=== PATIENT | male | born 1995 | race Caucasian/White ===

== ENCOUNTER 2019-06-14 23:16 | Emergency (ER) | payer BC, OTHER, SELFPAY ==
[2019-06-14 23:18] VITALS: BP 151/87; PULSE 91; RESP 12; TEMP 36.6; O2SAT 100; BMI 36.1
--- NOTE | 2019-06-14 23:38 | ED.VISSUMM ---
- ER Visit Summary Date of Service: 06/14/19 Chief Complaint: Urine discoloration History of Present Illness: The patient is a 23 M who presents with urine discoloration that began today. Patient states that couple hours ago he noted his urine to be orange and red. Patient states he urinated again later and it was starting to improve but was still discolored. Patient denies any pain. Patient denies any dysuria. Patient denies any flank pain. Patient denies any nausea or vomiting. Patient denies any urethral discharge or drainage. Patient denies any other symptoms. Physical Examination: Vital signs are stable. Patient is afebrile. Patient is in no acute distress. Oral mucosa is pink and moist. Neck is supple. Trachea is midline. There is no JVD noted. Heart was regular rate and rhythm. Lungs are clear and equal bilaterally. Abdomen is soft. Bowel sounds are normal. There is no tenderness. There is no rebound or guarding noted. Skin is warm dry. Cranial nerves II through XII are intact. There are no focal motor or sensory deficits noted. Extremities are intact. There is no calf tenderness or edema. Test Results: Urinalysis was ordered. Blood was 250 and there were greater than 100 red blood cells. Because of this a CBC, comprehensive metabolic profile and CT scan of the abdomen and pelvis were obtained. Labs are within normal limits. CT scan of the abdomen and pelvis shows a 5 mm stone within the left kidney but no obstruction or hydronephrosis. This was interpreted by the radiologist and reviewed by myself. Emergency Department Course and Treatment: Patient was advised of the findings. Patient was instructed to drink plenty of fluids. Patient was instructed to follow-up with his primary care physician in 5 to 7 days. Patient was instructed return if worse in any way. Patient understood and was agreeable with the plan. All questions were answered. Disposition: Discharge home Impression: Hematuria This note was generated with [employer] dictation software. It may contain incorrect words, spelling, and punctuation that were not noted in review of the chart prior to signing ED Disposition - Plan for ED Patient: Disposition: Home or Assisted Living Diagnosis: Hematuria Instructions: Hematuria Referrals: NOT,DEFINED [NON-STAFF] - 5-7 Days
[2019-06-14 23:58] LABS: Bacteria 0 SEEN /hpf (None Seen); Mucous, Urine 0 SEEN /hpf (<or=2+); Squamous Epithelial Cells - UA 0 SEEN /hpf (0-5); White Blood Cells 0 SEEN /hpf (0-5)
[2019-06-15] LABS: Color, Urine Amber (Yellow); Glucose, Dipstick Normal (Normal); Ketone-Dipstick 5 mg/dl (Negative); Leukocyte Esterase-Dipstick 25 /ul (Negative); Nitrite-Dipstick Negative (Negative); Occult Blood-Urine 250 /ul (Negative); Protein-Dipstick 30 mg/dl (Negative); Urine Bilirubin Dipstick Negative (Negative); Urine Clarity Cloudy (Clear); Urine Urobilinogen Normal (Normal)
[2019-06-15 00:15] LABS: Red Blood Cells-Urine > 100 SEEN /hpf (0-5)
--- NOTE | 2019-06-15 01:04 | CT_ITS ---
STUDY: CT ABDOMEN AND PELVIS WITHOUT CONTRAST REASON FOR EXAM: Male, 23 years old. ORANGE URINE TODAY, HEMATURIA, HX HTN RADIATION DOSAGE (If Supplied By Facility): CTDIvol = ( 15.83 ) mGy, DLP = ( 866.07 ) mGycm TECHNIQUE: Transaxial images were obtained from the dome of the diaphragm to the symphysis pubis without oral contrast, and without intravenous contrast. Sagittal and coronal images were reconstructed. Individualized dose optimization techniques were used for this CT. COMPARISON: None. FINDINGS: The visualized lung bases are unremarkable. The visualized portions of the heart are within normal limits. Normal liver. Normal gallbladder and extrahepatic biliary system. Normal spleen. Normal pancreas. Normal bilateral adrenal glands. Normal right kidney. There is 5 mm stone in the left kidney without hydronephrosis. Normal visualized stomach. Normal small intestine. Normal colon. The appendix is visualized and appears normal. Normal abdominal aorta. Normal inferior vena cava. Normal retroperitoneum. Normal urinary bladder. Normal abdominal wall. Normal osseous structures. CT/Abdomen/Pelvis without Cont IMPRESSION: There is 5 mm stone in the left kidney without hydronephrosis. Electronically Signed: Cruz Childers, at 2:11 EST Tel , Service support ,
[2019-06-15 01:22] LABS: Absolute Lymphocyte Count 2.45 X10^3/uL (0.83-4.51); Absolute Neutrophil Count 3.5 X10^3/uL (2.0-7.7); Basophil# 0.03 X10^3/uL; Basophil% 0.4 % (0-1); Eosinophil# 0.11 X10^3/uL; Eosinophils% 1.6 % (0-5); Hematocrit 44.2 % (40-54); Hemoglobin 15.9 g/dL (13.0-16.5); Lymphocyte # 2.45 X10^3/ul (4.0); Lymphocyte % 36.5 % (19-41); Mean Corpuscular Hgb 30.2 pg (27.0-32.0); Mean Corpuscular Volume 83.9 fL (80-94); Mean Platelet Vol. 8.8 fl (6.2-12.0); Monocyte# 0.58 X10^3/uL; Monocyte% 8.6 % (0-10); NRBC Flagged by Analyzer 0 % (0-5); Neutrophil # 3.49 X10^3/uL (2.7-7.7); Platelet Count 307 K/mm3 (150-450); RBC Distribution Width CV 12.1 % (11.6-14.6); RBC Distribution Width SD 35.8 fl (35.1-43.9); Red Blood Count 5.27 M/mm3 (4.6-6.2); White Blood Count 6.7 K/mm3 (4.4-11.0)
[2019-06-15 01:39] LABS: ALB/GLOB Ratio 1.2 RATIO (0.9-2.4); AST(SGOT) 25 U/L (15-37); Alanine Aminotransfer ALT/SGPT 68 U/L (16-61); Albumin, Serum 4.4 g/dL (3.2-5.0); Alkaline Phosphatase 51 U/L (45-117); Anion Gap 5 (5-15); BUN 15 mg/dL (7-18); BUN/Creat Ratio 15.2 RATIO (10-20); Calcium,Total 9.5 mg/dL (8.5-10.1); Chloride 108 mmol/L (98-107); Creatinine, Serum 0.99 mg/dL (0.70-1.30); EST Glomerular Filtration Rate 98 mL/min (>60); Est Glom Filt Rate - Afr Amer 118 mL/min (>60); Estimated Creatinine Clearance 102.93 ml/min; Globulin 3.6 g/dL (2.2-4.2); Glucose 96 mg/dL (74-106); Potassium 3.9 mmol/L (3.5-5.1); Sodium Level 142 mmol/L (136-145)
[2019-06-15 02:44] VITALS: BP 139/77; PULSE 85; RESP 18; O2SAT 99
== END 2019-06-15 02:48 | disposition home or self-care (01) ==
PROVIDERS: Emergency Provider Emergency Medicine
DX: N20.0 Calculus of kidney (principal)
CPT/HCPCS: 74176; 80053; 81001; 85025; 99283; A4216

== ENCOUNTER 2019-07-10 10:57 | Day surgery (SDC) | payer BC, OTHER, SELFPAY ==
[2019-07-10] VITALS (7 sets, daily range): BP systolic 112–141; BP diastolic 73–92; PULSE 66–94; RESP 15–16; TEMP 36.3–37.1; O2SAT 94–100; BMI 34.5
--- NOTE | 2019-07-10 11:02 | RAD_ITS ---
STUDY: X-RAY - ABDOMEN/PELVIS REASON FOR EXAM: Male, 23 years old. pre op for ESWL, left kidney stone TECHNIQUE: 1 view COMPARISON: Prior abdomen and pelvic CT exam of June 15, 2019 FINDINGS: Normal visualized lung bases. There is an unremarkable bowel gas pattern. There is no demonstrated free abdominal air. Negative for right renal or ureteral calcifications. On the left, there is a calcific density with irregular margins measuring about 4 mm that appears to be along the medial edge of the left renal silhouette 3.8 cm above the inferior surface of the lower pole. Normal visualized osseous structures. RAD/Abdomen Single View IMPRESSION: 4 mm irregular calcification which appears to be along the medial edge of the kidney 3.8 cm above the inferior surface of the lower pole on the prior CT exam of June 15, 2019 a stone was identified just above the midpoint of the left kidney. Assuming this is the same calcification is now on a different location. Using the prior CT exam as a map, the stone would appear to be at or near the ureteropelvic junction. No additional calcifications. Unremarkable abdominal bowel gas pattern. Electronically Signed: Veronica Philippe MD at 17:15 EDT , Service support ,
[2019-07-10] MEDS: Lactated Ringers 1,000 ML 100 ML IV ×2 (11:45→16:06)
[2019-07-10] MEDS: Cefazolin 2 GM in 0.9% Normal Saline 100 ML IV (13:44)
--- NOTE | 2019-07-10 14:23 | PCM.DC.URO ---
Discharge Diet: Light diet - advance as tolerated Discharge Activity: Return to Normal Activity Call your doctor if your incision/area has: Sudden Increased Bleeding Call your doctor if you observe: Fever of 101 or Higher Instructions: Shock Wave Lithotripsy Allergies/Adverse Reactions: Allergies nut - unspecified Allergy (Verified 07/10/19 11:26) Anaphylaxis Penicillins Adverse Reaction (Verified 07/10/19 11:26) Unknown SEAFOOD Adverse Reaction (Uncoded 07/10/19 11:26) Upset Stomach Medications to take at Discharge Hydrocodone/Acetaminophen [[place] 5-325 Tablet] 1 each PO Q4H PRN PRN #10 tablet 07/10/19 The following prescriptions were given: Hydrocodone/Acetaminophen [[place] 5-325 Tablet] 1 each PO Q4H PRN PRN #10 tablet PRN Reason: Pain Score 1-10/10 Transmission Status: Sent to [facility] Orders to be completed after discharge: Abdomen Single View [RAD] Time Frame: 07/10/19, Facility: [facility], Location: [facility] Primary Care Physician: Ilene SHINE [Other] Test Results: Test results from this visit will be discussed in further detail at your follow-up appointment, if applicable. Please Follow Up With: Nathaniel Lenz MD When: in 2 weeks, please call to make an appointment.
--- NOTE | 2019-07-10 14:23 | PCM.OPRPT ---
Report of Operation Date of Procedure: 07/10/19 Pre-Operative Diagnosis: Left renal calculi Post-Operative Diagnosis: Same Surgery/Procedure Performed:: Left extracorporeal shockwave lithotripsy Description of Surgical Findings:: 23-year-old male has been having intermittent pain in the left side CAT scan was done demonstrated a stone is moving in the left kidney after consultation with the patient we talked about options of management including observation ureteroscopy and laser and shockwave lithotripsy he elected to proceed with shockwave lithotripsy and we plan to treat the stone today with shockwave and we do not plan to place a stent. Patient was taken back to the operating room after smooth induction of anesthesia he was placed supine on the table we then positioned the patient on the lithotripter table we used the fluoroscope and moved around to triangulate to the stone we could see the stone clearly on x-ray and then we delivered shockwaves to the stone at a rate of 90/min and a total of 2000 shockwaves were delivered to a 5 mm fragment in the left kidney appear to be of moved into a lower location stone broke up very well after treatment. At the end of the treatment cycle we were satisfied with the with the fragmentation of the stone no stent was placed patient's anesthetic is currently being reversed plan to see him back with an x-ray in a few weeks. Type of Anesthesia:: General Drains: none - Admit VTE Documentation VTE Present on Admission: No VTE Mechan Device Prophylaxis: SCD's
[2019-07-10] MEDS: Ketorolac 15 MG/ML Vial IV (14:49)
[2019-07-10] MEDS: HYDROcodone Bitartrate/Apap 5/325 Tablet PO (15:48)
== END 2019-07-10 17:26 | disposition home or self-care (01) ==
LOC: SDC 10:57 → AC 10:59
PROVIDERS: Referring Provider Urology; Visit Provider Urology
PROC: (CPT 50590; principal; 2019-07-10 13:10)
DX: N20.0 Calculus of kidney (principal); R31.0 Gross hematuria
CPT/HCPCS: 00873; 50590; 74018; J7120; J2405

== ENCOUNTER → 2021-04-06 10:33 | Outpatient (CLI) | payer BC, OTHER, SELFPAY | PROVIDERS: Visit Provider Family Medicine | DX: Z23 Encounter for immunization (principal) ==

== ENCOUNTER 2022-05-29 03:30 | Emergency (ER) | payer BC, SELFPAY ==
[2022-05-29 03:30] VITALS: BP 163/101; PULSE 62; RESP 18; TEMP 36.4; O2SAT 96; BMI 36.0
--- NOTE | 2022-05-29 03:57 | EKG12_ITS ---
Test Reason : ABD PAIN Blood Pressure : / mmHG Vent. Rate : 066 BPM Atrial Rate : 066 BPM P-R Int : 160 ms QRS Dur : 096 ms QT Int : 438 ms P-R-T Axes : 009 057 037 degrees QTc Int : 459 ms Normal sinus rhythm with sinus arrhythmia Normal ECG Confirmed by UNIQUE HINDS, FLORENTIN ([id number]), editor & co founder MATHEW VALDEZ ([id number]) on 05/31/2022 10:12:10 AM Referred By: GEMA Confirmed By:FLORENTIN CALHOUN MD
--- NOTE | 2022-05-29 03:58 | CT_ITS ---
INDICATION: Pain EXAMINATION: CT ABDOMEN AND PELVIS WITHOUT CONTRAST - CT Abdomen And Pelvis W/O Contrast Injection TECHNIQUE: Helically acquired images were obtained of the abdomen and pelvis without oral or IV contrast. A radiation dose optimization technique was used for this scan. IV Contrast dosage and agent: None. Oral contrast: None. COMPARISON: None. FINDINGS: LOWER CHEST: Lung bases are clear. No cardiomegaly or pericardial effusion. LIVER: Homogeneous. No focal mass. GALLBLADDER AND BILIARY TREE: No calcified gallstones. No gallbladder distension or wall edema. No intra- or extrahepatic biliary ductal dilation. PANCREAS: No focal cystic or solid mass. SPLEEN: Normal size without focal cystic or solid mass. ADRENAL GLANDS: No nodules. KIDNEYS AND URETERS: Normal renal size and position. No hydronephrosis. PERITONEUM: No ascites or free air. No other fluid collection. BOWEL: No evidence of acute appendicitis. No stomach or bowel distension. No focal inflammatory change. LYMPH NODES: No enlarged mesenteric or retroperitoneal lymph nodes. VESSELS: Aorta is non-dilated. URINARY BLADDER: Unremarkable. REPRODUCTIVE ORGANS: No pelvic masses. ABDOMINAL WALL: No discrete abdominal or pelvic wall hernia. BONES: No lytic or blastic abnormality. CT/Abdomen/Pelvis without Cont IMPRESSION: Negative CT abdomen and pelvis without oral or IV contrast. Electronically Signed: Cruz Childers MD at 4:33 EST ,
--- NOTE | 2022-05-29 04:04 | EDS_ITS ---
HPI HPI - GI History of Present Illness Chief Complaint: Abd Pain Informant: patient Narrative Narrative: Patient woke up at about 3 AM with epigastric pain. He states it does radiate a little bit toward his back. He does not really think he is nauseated with it. No lightheadedness or presyncope. He denies any chest pain or migration of the pain into his chest or shortness of breath or trouble with breathing. He urinated when he woke up and he thinks it look normal. No change in bowel habits. He has had kidney stones before and had lithotripsy once. This pain may be similar but he does not think it was in the same spot. He does not drink alcohol. He has never had liver problems or pancreatitis. He has not been having GERD or reflux symptoms recently. He felt fine when he went to bed. He has not vomited with this. He has not been having fevers. [facility] Medical History Kidney calculi Home Medications dicyclomine 20 mg tablet 20 mg PO TID PRN cramps #14 tabs 05/29/22 [Rx Last Taken Unknown] omeprazole 20 mg capsule,delayed release 20 mg PO DAILY 6 weeks #42 caps 05/29/22 [Rx Last Taken Unknown] Allergy/AdvReac Type Severity Reaction Status Date / Time nut - unspecified Allergy Anaphylaxis Verified 05/29/22 03:34 fish derived AdvReac Upset Verified 05/29/22 03:34 [seafood - derived] Stomach Penicillins AdvReac Unknown Verified 05/29/22 03:34 shellfish derived AdvReac Upset Verified 05/29/22 03:34 [seafood - shellfish] Stomach Social History Smoking Status: Never smoker ROS ROS ED Constitutional Constitutional ED: Denies chills, fever(s), subjective or sweats ENT ENT ED: Denies rhinorrhea or sore throat Cardiovascular Cardiovascular: Denies chest pain, palpitations or racing heartbeat Respiratory/Chest Respiratory/Chest: Denies cough, dyspnea or sputum Gastrointestinal Gastrointestinal: Reports abdominal pain and nausea; Denies constipation, diarrhea, melena or vomiting Genitourinary Genitourinary ED: Denies dysuria, hematuria or urinary frequency Musculoskeletal Musculoskeletal: Reports back pain; Denies neck pain Integumentary Denies rash Neurologic Neurologic: Denies paresthesias or weakness Endocrine Endocrinology: Denies polydipsia or polyuria Hematologic/Lymphatic Hematologic/Lymphatic: Denies easy bleeding, easy bruising or lymphadenopathy Allergic/Immunologic Allergic/Immunologic ED: Denies urticaria EXAM Physical Exam Narrative Exam Narrative: Patient is awake and alert. He gives consistent story. He does look uncomfortable on exam. No pallor. HEENT shows mildly dry mucous membranes. Eyes show no jaundice. Neck shows no pain with motion or JVD. No stridor. Lungs are clear bilaterally. He can take good deep breaths without pain. No asymmetry of breasts. Heart is regular with a rate about 65. No murmur gallop or rub. His peripheral pulses x4 are normal. Abdomen is soft nondistended. Bowel sounds sound normal. He does have some epigastric tenderness. No real right or left upper quadrant tenderness and no lower abdominal tenderness. : He does have some CVA tenderness more on the right than the left. But no skin changes. No suprapubic tenderness Extremities show normal pulses color. No tenderness or swelling. No mottling. Skin shows no rash or pallor. No jaundice. Const Vital Signs: 05/29/22 03:30 Temperature 97.5 F L Temperature Source Temporal Pulse Rate 62 Respiratory Rate 18 Blood Pressure 163/101 H Blood Pressure Mean 121 Pulse Ox 96 Oxygen Delivery Method Room Air MDM MDM MDM Narrative Medical decision making narrative: My independent interpretation of the patient's CT of the abdomen without contrast shows no sign of acute process. I see no renal stones. I see no free air perforation. No inflammatory changes. Final reading by radiology shows negative CT abdomen pelvis without oral or IV contrast. I do not think we need CTA. This patient does not have chest pain or dyspnea. Its not tearing or ripping or severe. He has normal pulses. His symptoms are now better. Patient CBC shows mild elevation hemoglobin but normal white count and platelets. Electrolytes are normal. Glucose was minimally up at 119. Total bilirubin was minimally high at 1.2 but this is the same as the past. Remainder of liver function test are normal. Lipase is negative. Urine shows no acute process. Patient is feeling better now. His abdomen is not as tender. He states it still sore in the upper abdomen but overall much better. I explained that with the epigastric pain this is most likely gastric in origin. He did have some radiation to the back but by far most was epigastric. Most likely this is gastritis or ulcer type disease. I will get him on a protein pump inhibitor. We discussed reasons to return which would be further pain, recurrent vomiting, blood in stool or vomitus, fevers, lightheadedness or other concerns. Lab Data Attestation: I reviewed the patient's lab results. Labs: Laboratory Results - last 24 hr 05/29/22 05/29/22 05/29/22 04:03 04:03 04:15 WBC 9.9 RBC 5.55 Hgb 16.6 H Hct 46.6 MCV 84.0 MCH 29.9 MCHC 35.6 RDW Std Deviation 35.7 RDW Coeff of [place] 11.9 Plt Count 276 MPV 9.2 Immature Gran % (Auto) 0.400 Neut % (Auto) 40.4 L Lymph % (Auto) 44.[address] [place] % (Auto) 10.1 H Eos % (Auto) 3.5 Baso % (Auto) 0.7 Absolute Neuts (auto) 4.0 Absolute Lymphs (auto) 4.45 Nucleated RBC % 0 Sodium 142 Potassium 3.5 Chloride 106 Carbon Dioxide 26.0 Anion Gap 10 BUN 16 Creatinine 0.98 Estim Creat Clear Calc 101.27 Est GFR (MDRD) Af Amer 116 Est GFR (MDRD) Non-Af 96 BUN/Creatinine Ratio 16.3 Glucose 119 H Calcium 9.5 Total Bilirubin 1.20 H AST 29 ALT 59 Alkaline Phosphatase 60 Total Protein 8.3 H Albumin 4.3 Globulin 4.0 Albumin/Globulin Ratio 1.1 Lipase 145 Urine Color Yellow Urine Clarity Clear Urine pH 6.0 Ur Specific [place] 1.030 Urine Protein 30 H Urine Glucose (UA) Normal Urine Ketones 5 H Urine Occult Blood 10 H Urine Nitrite Negative Urine Bilirubin 1 H Urine Urobilinogen 1 H Ur Leukocyte Esterase 25 H Urine RBC 0 SEEN Urine WBC 0-5 SEEN Ur Squamous Epith Cells 0 SEEN Urine Bacteria 1+ Urine Mucus 1+ Radiography Diagnostic Testing: Clinical Impression(s) from Imaging Studies Abdomen/Pelvis CT 05/29/22 03:58 IMPRESSION: Negative CT abdomen and pelvis without oral or IV contrast. Electronically Signed: Cruz Childers MD at 4:33 EST , EKG Initial EKG: Comments: My independent interpretation of the EKG done for upper abdominal pain shows sinus rhythm with some sinus arrhythmia. Overall rate of 66. No ventricular ectopy. There is a wavy baseline but no sign of acute ST elevation or depression. WI interval, QRS duration and QTc are normal. Discharge Plan Triage Chief Complaint: Abd Pain ED Provider: Roland Briones Dx/Rx/DC Orders Clinical Impression: Acute epigastric pain Instructions: ED Gastritis Ulcer No Abx, ED Abdominal Pain Unkn Cause Male... Prescriptions: New omeprazole 20 mg capsule,delayed release(DR/EC) 20 mg PO DAILY 42 Days Qty: 42 0RF dicyclomine 20 mg tablet 20 mg PO TID PRN (Reason: cramps) Qty: 14 0RF Primary Care Provider: Care Physician,No Primary Referrals: Umer Reich MD [Med Staff - Mortgage Loan Originator] - 3-5 Days NOT,DEFINED [Non-Staff] - Disposition Disposition: Home, Self Care
[2022-05-29 04:06] LABS: Absolute Lymphocyte Count 4.45 X10^3/uL (0.83-4.51); Basophil# 0.07 X10^3/uL; Basophil% 0.7 % (0-1); Eosinophil# 0.35 X10^3/uL; Eosinophils% 3.5 % (0-5); Hematocrit 46.6 % (40-54); Hemoglobin 16.6 g/dL (13.0-16.5); Lymphocyte # 4.45 X10^3/ul (0.83-4.51); Lymphocyte % 44.9 % (19-41); Mean Corp Hgb Conc 35.6 g/dL (32-36); Mean Corpuscular Hgb 29.9 pg (27.0-32.0); Mean Platelet Vol. 9.2 fl (6.2-12.0); Monocyte% 10.1 % (0-10); NRBC Flagged by Analyzer 0 % (0-5); Neutrophil % 40.4 % (47-70); Platelet Count 276 K/mm3 (150-450); RBC Distribution Width CV 11.9 % (11.6-14.6); RBC Distribution Width SD 35.7 fl (35.1-43.9); Red Blood Count 5.55 M/mm3 (4.6-6.2); White Blood Count 9.9 K/mm3 (4.4-11.0)
[2022-05-29] MEDS: 0.9% Normal Saline 1,000 ML 1000 ML IV (04:11)
[2022-05-29] MEDS: Ondansetron 4 MG/2 ML Vial IV (04:12)
[2022-05-29] MEDS: Morphine 4 MG/ML Syringe IV (04:13)
[2022-05-29 04:22] LABS: ALB/GLOB Ratio 1.1 RATIO (0.9-2.4); AST(SGOT) 29 U/L (15-37); Alanine Aminotransfer ALT/SGPT 59 U/L (16-61); Albumin, Serum 4.3 g/dL (3.2-5.0); Alkaline Phosphatase 60 U/L (45-117); Anion Gap 10 (5-15); BUN 16 mg/dL (7-18); BUN/Creat Ratio 16.3 RATIO (10-20); Calcium,Total 9.5 mg/dL (8.5-10.1); Chloride 106 mmol/L (98-107); Creatinine, Serum 0.98 mg/dL (0.70-1.30); EST Glomerular Filtration Rate 96 mL/min (>60); Est Glom Filt Rate - Afr Amer 116 mL/min (>60); Estimated Creatinine Clearance 101.27 ml/min; Glucose 119 mg/dL (74-106); Lipase 145 U/L (73-393); Potassium 3.5 mmol/L (3.5-5.1); Protein, Total 8.3 g/dL (6.4-8.2); Sodium Level 142 mmol/L (136-145)
[2022-05-29 04:22] LABS: Red Blood Cells-Urine 0 SEEN /hpf (0-5); Squamous Epithelial Cells - UA 0 SEEN /hpf (0-5)
[2022-05-29 04:25] LABS: Color, Urine Yellow (Yellow); Glucose, Dipstick Normal (Normal); Ketone-Dipstick 5 mg/dl (Negative); Leukocyte Esterase-Dipstick 25 /ul (Negative); Nitrite-Dipstick Negative (Negative); Occult Blood-Urine 10 /ul (Negative); Protein-Dipstick 30 mg/dl (Negative); Urine Bilirubin Dipstick 1 mg/dL (Negative); Urine Clarity Clear (Clear); Urine Urobilinogen 1 mg/dl (Normal)
[2022-05-29 04:29] LABS: Bacteria 1+ /hpf (None Seen); Mucous, Urine 1+ /hpf (<or=2+); White Blood Cells 0-5 SEEN /hpf (0-5)
[2022-05-29 05:45] VITALS: BP 154/75; PULSE 79; RESP 18; O2SAT 100
== END 2022-05-29 05:46 | disposition home or self-care (01) ==
PROVIDERS: Emergency Provider Emergency Medicine; Visit Provider Emergency Medicine
DX: R10.13 Epigastric pain (principal); Z87.442 Personal history of urinary calculi
CPT/HCPCS: 74176; 80053; 81001; 83690; 85025; 93005; 96361; 96365; 96375; 99282; J7030; A4216; J2405; J3490

== ENCOUNTER → 2022-07-16 | Outpatient (CLI) | payer BC, SELFPAY ==
[2022-07-16 10:03] LABS: Absolute Lymphocyte Count 1.93 X10^3/uL (0.83-4.51); Absolute Neutrophil Count 2.9 X10^3/uL (2.0-7.7); Basophil# 0.05 X10^3/uL; Basophil% 0.9 % (0-1); Eosinophil# 0.17 X10^3/uL; Eosinophils% 3.1 % (0-5); Hematocrit 47.2 % (40-54); Hemoglobin 16.5 g/dL (13.0-16.5); Lymphocyte # 1.93 X10^3/ul (0.83-4.51); Lymphocyte % 34.7 % (19-41); Mean Corpuscular Hgb 30.2 pg (27.0-32.0); Mean Corpuscular Volume 86.4 fL (80-94); Mean Platelet Vol. 9.5 fl (6.2-12.0); Monocyte# 0.46 X10^3/uL; Monocyte% 8.3 % (0-10); NRBC Flagged by Analyzer 0 % (0-5); Neutrophil # 2.94 X10^3/uL (2.7-7.7); Neutrophil % 52.8 % (47-70); Platelet Count 225 K/mm3 (150-450); RBC Distribution Width SD 37.6 fl (35.1-43.9); Red Blood Count 5.46 M/mm3 (4.6-6.2); White Blood Count 5.6 K/mm3 (4.4-11.0)
[2022-07-16 10:25] LABS: ALB/GLOB Ratio 1.1 RATIO (0.9-2.4); AST(SGOT) 23 U/L (15-37); Alanine Aminotransfer ALT/SGPT 53 U/L (16-61); Albumin, Serum 4.2 g/dL (3.2-5.0); Alkaline Phosphatase 49 U/L (45-117); Anion Gap 7 (5-15); BUN 16 mg/dL (7-18); BUN/Creat Ratio 16.2 RATIO (10-20); Chloride 108 mmol/L (98-107); Cholesterol 198 mg/dL (200); Creatinine, Serum 0.99 mg/dL (0.70-1.30); EST Glomerular Filtration Rate 95 mL/min (>60); Est Glom Filt Rate - Afr Amer 115 mL/min (>60); Globulin 3.7 g/dL (2.2-4.2); Glucose 97 mg/dL (74-106); High Density Lipoprotein 33 mg/dL; Potassium 4.1 mmol/L (3.5-5.1); Protein, Total 7.9 g/dL (6.4-8.2); Sodium Level 140 mmol/L (136-145); T4 Free Direct 0.96 ng/dL (0.76-1.46); Thyroid Stim Hormone (TSH) 1.32 uIU/mL (0.358-3.74); Triglycerides 228 mg/dL; Very Low Density Lipoprotein 46 mg/dL (5-40)
[2022-07-16 10:28] LABS: Vitamin B12 312 pg/mL (211-911); Vitamin D,25 Hydroxy 10.1 ng/mL
[2022-07-19 09:08] LABS: Beef <0.10 kU/L (Class 0); Corn <0.10 kU/L (Class 0); Egg, Whole <0.10 kU/L (Class 0); Milk (Cow) <0.10 kU/L (Class 0); Peanut <0.10 kU/L (Class 0); Pork <0.10 kU/L (Class 0); Soybean <0.10 kU/L (Class 0); Wheat <0.10 kU/L (Class 0)
[2022-07-19 13:05] LABS: Chocolate <0.10 kU/L (Class 0)
== END | disposition home or self-care (01) ==
LOC: MFPLAB 08:24
PROVIDERS: Visit Provider Family Medicine
DX: Z91.018 Allergy to other foods (principal); E66.9 Obesity, unspecified; R53.83 Other fatigue
CPT/HCPCS: 36415; 80053; 80061; 82306; 82607; 84439; 84443; 85025; 86003; 86005

== ENCOUNTER → 2022-11-08 | Outpatient (CLI) | payer BC, SELFPAY ==
[2022-11-08 12:46] LABS: Vitamin D,25 Hydroxy 56.8 ng/mL
== END | disposition home or self-care (01) ==
LOC: MFPLAB 09:49
PROVIDERS: PCP Family Medicine; Visit Provider Family Medicine
DX: E55.9 Vitamin D deficiency, unspecified (principal)
CPT/HCPCS: 36415; 82306

== ENCOUNTER → 2023-05-02 | Outpatient (CLI) | payer BC, SELFPAY ==
[2023-05-02 11:08] LABS: ALB/GLOB Ratio 1.1 RATIO (0.9-2.4); AST(SGOT) 33 U/L (15-37); Alanine Aminotransfer ALT/SGPT 70 U/L (16-61); Albumin, Serum 4.1 g/dL (3.2-5.0); Alkaline Phosphatase 44 U/L (45-117); Anion Gap 5 (5-15); BUN 21 mg/dL (7-18); Calcium,Total 8.7 mg/dL (8.5-10.1); Chloride 107 mmol/L (98-107); EST Glomerular Filtration Rate 93 mL/min (>60); Est Glom Filt Rate - Afr Amer 113 mL/min (>60); Globulin 3.7 g/dL (2.2-4.2); Glucose 99 mg/dL (74-106); Potassium 4.4 mmol/L (3.5-5.1); Protein, Total 7.8 g/dL (6.4-8.2); Sodium Level 139 mmol/L (136-145)
== END | disposition home or self-care (01) ==
LOC: MFPLAB 08:56
PROVIDERS: PCP Family Medicine; Visit Provider Family Medicine
DX: E55.9 Vitamin D deficiency, unspecified (principal)
CPT/HCPCS: 36415; 80053; 82306

== ENCOUNTER → 2023-05-21 | Outpatient (CLI) | payer BC, SELFPAY ==
[2023-05-21 12:41] LABS: Vitamin D,25 Hydroxy 58.2 ng/mL
[2023-05-21 12:50] LABS: ALB/GLOB Ratio 1.3 RATIO (0.9-2.4); AST(SGOT) 24 U/L (15-37); Alanine Aminotransfer ALT/SGPT 52 U/L (16-61); Albumin, Serum 4.5 g/dL (3.2-5.0); Alkaline Phosphatase 44 U/L (45-117); Anion Gap 5 (5-15); BUN 18 mg/dL (7-18); BUN/Creat Ratio 17.3 RATIO (10-20); Calcium,Total 9.6 mg/dL (8.5-10.1); Chloride 107 mmol/L (98-107); Creatinine, Serum 1.04 mg/dL (0.70-1.30); EST Glomerular Filtration Rate 89 mL/min (>60); Est Glom Filt Rate - Afr Amer 108 mL/min (>60); Globulin 3.5 g/dL (2.2-4.2); Glucose 94 mg/dL (74-106); Potassium 4.4 mmol/L (3.5-5.1); Sodium Level 138 mmol/L (136-145)
== END | disposition home or self-care (01) ==
LOC: MTLAB 10:20
PROVIDERS: PCP Family Medicine; Referring Provider Family Medicine; Visit Provider Family Medicine
DX: E55.9 Vitamin D deficiency, unspecified (principal)
CPT/HCPCS: 36415; 80053; 82306

== ENCOUNTER → 2023-10-01 | Outpatient (CLI) | payer BC, SELFPAY ==
[2023-10-01 12:20] LABS: Hematocrit 48.2 % (40-54); Hemoglobin 16.6 g/dL (13.0-16.5); Mean Corp Hgb Conc 34.4 g/dL (32-36); Mean Corpuscular Hgb 29.9 pg (27.0-32.0); Mean Corpuscular Volume 86.7 fL (80-94); Mean Platelet Vol. 9.5 fl (6.2-12.0); Platelet Count 247 K/mm3 (150-450); RBC Distribution Width CV 11.9 % (11.6-14.6); Red Blood Count 5.56 M/mm3 (4.6-6.2); White Blood Count 6.1 K/mm3 (4.4-11.0)
[2023-10-01 12:35] LABS: Vitamin D,25 Hydroxy 29.4 ng/mL
[2023-10-01 12:38] LABS: ALB/GLOB Ratio 1.2 RATIO (0.9-2.4); AST(SGOT) 28 U/L (15-37); Alanine Aminotransfer ALT/SGPT 55 U/L (16-61); Albumin, Serum 4.5 g/dL (3.2-5.0); Alkaline Phosphatase 51 U/L (45-117); Anion Gap 6 (5-15); BUN 12 mg/dL (7-18); BUN/Creat Ratio 11.8 RATIO (10-20); Calcium,Total 9.6 mg/dL (8.5-10.1); Chloride 107 mmol/L (98-107); Creatinine, Serum 1.02 mg/dL (0.70-1.30); EST Glomerular Filtration Rate 91 mL/min (>60); Est Glom Filt Rate - Afr Amer 110 mL/min (>60); Globulin 3.6 g/dL (2.2-4.2); Glucose 92 mg/dL (74-106); Potassium 4.3 mmol/L (3.5-5.1); Protein, Total 8.1 g/dL (6.4-8.2); Sodium Level 139 mmol/L (136-145)
== END | disposition home or self-care (01) ==
LOC: MFPLAB 10:12
PROVIDERS: PCP Family Medicine; Visit Provider Family Medicine
DX: E55.9 Vitamin D deficiency, unspecified (principal); E66.9 Obesity, unspecified
CPT/HCPCS: 36415; 80053; 82306; 85027

== ENCOUNTER → 2023-10-09 | Outpatient (CLI) | payer BC, SELFPAY ==
[2023-10-09 12:16] LABS: AST(SGOT) 23 U/L (15-37); Alanine Aminotransfer ALT/SGPT 45 U/L (16-61); Albumin, Serum 4.4 g/dL (3.2-5.0); Alkaline Phosphatase 45 U/L (45-117); Bilirubin, Direct 0.32 mg/dL (0.00-0.30); Globulin 3.3 g/dL (2.2-4.2); Protein, Total 7.7 g/dL (6.4-8.2)
== END | disposition home or self-care (01) ==
LOC: MFPLAB 09:38
PROVIDERS: PCP Family Medicine; Visit Provider Family Medicine
DX: E80.6 Other disorders of bilirubin metabolism (principal)
CPT/HCPCS: 36415; 80076

== ENCOUNTER → 2024-03-31 | Outpatient (CLI) | payer BC, SELFPAY ==
[2024-03-31 12:05] LABS: Absolute Lymphocyte Count 1.87 X10^3/uL (0.83-4.51); Absolute Neutrophil Count 3.2 X10^3/uL (2.0-7.7); Basophil# 0.06 X10^3/uL; Eosinophil# 0.17 X10^3/uL; Hematocrit 44.5 % (40-54); Hemoglobin 15.8 g/dL (13.0-16.5); Lymphocyte # 1.87 X10^3/ul (0.83-4.51); Lymphocyte % 32.6 % (19-41); Mean Corp Hgb Conc 35.5 g/dL (32-36); Mean Corpuscular Hgb 30.5 pg (27.0-32.0); Mean Corpuscular Volume 85.9 fL (80-94); Mean Platelet Vol. 9.6 fl (6.2-12.0); NRBC Flagged by Analyzer 0 % (0-5); Neutrophil % 55.9 % (47-70); Platelet Count 213 K/mm3 (150-450); RBC Distribution Width CV 11.9 % (11.6-14.6); Red Blood Count 5.18 M/mm3 (4.6-6.2); White Blood Count 5.7 K/mm3 (4.4-11.0)
[2024-03-31 12:19] LABS: Vitamin D,25 Hydroxy 31.7 ng/mL
[2024-03-31 12:41] LABS: AST(SGOT) 21 U/L (15-37); Alanine Aminotransfer ALT/SGPT 48 U/L (16-61); Albumin, Serum 4.1 g/dL (3.2-5.0); Alkaline Phosphatase 41 U/L (45-117); Anion Gap 7 (5-15); BUN 19 mg/dL (7-18); BUN/Creat Ratio 20.7 RATIO (10-20); Bilirubin, Direct 0.31 mg/dL (0.00-0.30); Calcium,Total 9.3 mg/dL (8.5-10.1); Chloride 108 mmol/L (98-107); Creatinine, Serum 0.92 mg/dL (0.70-1.30); EST Glomerular Filtration Rate 102 mL/min (>60); Est Glom Filt Rate - Afr Amer 124 mL/min (>60); Globulin 3.7 g/dL (2.2-4.2); Glucose 90 mg/dL (74-106); Potassium 4.4 mmol/L (3.5-5.1); Protein, Total 7.8 g/dL (6.4-8.2); Sodium Level 138 mmol/L (136-145)
== END | disposition home or self-care (01) ==
LOC: MFPLAB 10:48
PROVIDERS: PCP Family Medicine; Referring Provider Family Medicine; Visit Provider Family Medicine
DX: E55.9 Vitamin D deficiency, unspecified (principal); E66.9 Obesity, unspecified; F41.9 Anxiety disorder, unspecified; E80.6 Other disorders of bilirubin metabolism
CPT/HCPCS: 36415; 80048; 80076; 82306; 84443; 85025

== ENCOUNTER 2024-05-04 02:51 | Emergency (ER) | payer BC, SELFPAY ==
[2024-05-04 02:53] VITALS: BP 146/86; PULSE 76; RESP 16; TEMP 36.4; O2SAT 100; BMI 35.6
--- NOTE | 2024-05-04 03:35 | CT_ITS ---
EXAM: CT ABDOMEN AND PELVIS WITH INTRAVENOUS CONTRAST CLINICAL INDICATION: RUQ pain TECHNIQUE: Helically acquired images were obtained of the abdomen and pelvis with intravenous contrast. This CT exam was performed using one or more of the following dose reduction techniques: automated exposure control, adjustment of the mA and/or kV according to patient size, and/or use of iterative reconstruction technique. CONTRAST: IV 100mL [id number] RADIATION DOSE: CTDIvol = 12.09 mGy, DLP = 703.77 mGy-cm COMPARISON: CT abdomen pelvis 05/29/2022 FINDINGS: LOWER THORAX: Unremarkable. Lung bases are clear. No cardiomegaly. No significant pericardial effusion. ABDOMEN: LIVER: Unremarkable. Homogeneous. No focal mass. GALLBLADDER AND BILE DUCTS: The gallbladder is mildly distended, with possible noncalcified stones in the lumen. No intra- or extrahepatic biliary ductal dilation. PANCREAS: Unremarkable. No focal cystic or solid mass. SPLEEN: Unremarkable. Normal size without focal cystic or solid mass. ADRENALS: Unremarkable. No nodules. KIDNEYS AND URETERS: Unremarkable. Normal renal size and position. No hydronephrosis. STOMACH AND BOWEL: Unremarkable. No stomach or bowel distention. No focal inflammatory change. PELVIS: APPENDIX: The appendix is normal. BLADDER: Unremarkable. REPRODUCTIVE: Unremarkable as visualized. No mass. ABDOMEN and PELVIS: INTRAPERITONEAL SPACE: Unremarkable. No ascites or other fluid collection. No free air. BONES/JOINTS: Unremarkable. No suspicious lytic or blastic abnormality. SOFT TISSUES: Unremarkable. No discrete abdominal or pelvic wall hernia. VASCULATURE: Unremarkable. Abdominal aorta is non-dilated. LYMPH NODES: Unremarkable. No enlarged lymph nodes. CT/Abdomen/Pelvis W IV Cont ONLY IMPRESSION: The gallbladder is mildly distended, with possible noncalcified stones in the lumen. Consider ultrasound for further evaluation. Electronically Signed: Adarsh Luis MD at 4:34 EST ,
[2024-05-04 03:42] LABS: Absolute Lymphocyte Count 4.04 X10^3/uL (0.83-4.51); Absolute Neutrophil Count 4.2 X10^3/uL (2.0-7.7); Basophil# 0.06 X10^3/uL; Basophil% 0.6 % (0-1); Eosinophil# 0.31 X10^3/uL; Eosinophils% 3.3 % (0-5); Hematocrit 43.5 % (40-54); Hemoglobin 15.7 g/dL (13.0-16.5); Lymphocyte # 4.04 X10^3/ul (0.83-4.51); Lymphocyte % 42.9 % (19-41); Mean Corp Hgb Conc 36.1 g/dL (32-36); Mean Corpuscular Hgb 30.3 pg (27.0-32.0); Mean Corpuscular Volume 83.8 fL (80-94); Monocyte# 0.76 X10^3/uL; Monocyte% 8.1 % (0-10); NRBC Flagged by Analyzer 0 % (0-5); Neutrophil # 4.18 X10^3/uL (2.7-7.7); Neutrophil % 44.4 % (47-70); Platelet Count 266 K/mm3 (150-450); RBC Distribution Width CV 11.7 % (11.6-14.6); RBC Distribution Width SD 35.1 fl (35.1-43.9); Red Blood Count 5.19 M/mm3 (4.6-6.2); White Blood Count 9.4 K/mm3 (4.4-11.0)
[2024-05-04] MEDS: 0.9% Normal Saline (1000mL) 1,000 ML 999 ML IV (03:43)
[2024-05-04] MEDS: Ondansetron 4 MG/2 ML Vial IV (03:43)
[2024-05-04] MEDS: HYDROmorphone 1 MG/ML Syringe IV (03:43)
[2024-05-04 04:16] LABS: AST(SGOT) 23 U/L (15-37); Alanine Aminotransfer ALT/SGPT 45 U/L (16-61); Albumin, Serum 4.1 g/dL (3.2-5.0); Alkaline Phosphatase 47 U/L (45-117); Anion Gap 4 (5-15); BUN 16 mg/dL (7-18); BUN/Creat Ratio 15.7 RATIO (10-20); Bilirubin, Direct 0.28 mg/dL (0.00-0.30); Calcium,Total 9.3 mg/dL (8.5-10.1); Chloride 106 mmol/L (98-107); Creatinine, Serum 1.02 mg/dL (0.70-1.30); EST Glomerular Filtration Rate 91 mL/min (>60); Est Glom Filt Rate - Afr Amer 110 mL/min (>60); Estimated Creatinine Clearance 117.25 ml/min; Globulin 3.5 g/dL (2.2-4.2); Glucose 109 mg/dL (74-106); Lipase 42 U/L (13-75); Potassium 3.5 mmol/L (3.5-5.1); Protein, Total 7.6 g/dL (6.4-8.2); Sodium Level 139 mmol/L (136-145)
--- NOTE | 2024-05-04 05:03 | EX.ED.DYSGE1 ---
HPI History of Present Illness Chief Complaint: Abd Pain Informant: patient and spouse/S.O. Narrative Narrative: Patient is a 28-year-old male with no clinically significant past medical history. He states that 2 nights ago he awoke in the middle of the night with pain around the mid upper abdominal region that seem to radiate to the right and left. He states it lasted an hour or so and resolved. He states this evening the same event happened but the pain is more intense and is lasting longer and secondary to this he comes in for evaluation. He does state that roughly 2 years ago he had a similar event and was seen in the ER but states he had never followed up or performed any further testing and that last night for dinner he ate a chicken dish with breaded chicken and cheese [facility] Medical History Kidney calculi Home Medications ?Medication ?Instructions ?Recorded ?Last Taken ?Type ondansetron 4 mg disintegrating 4 mg PO TID PRN nausea and 05/04/24 Unknown Rx tablet vomiting #21 tabs oxycodone-acetaminophen 5 mg-325 1 tab PO Q6H PRN pain 5 days #20 05/04/24 Unknown Rx mg tablet (Percocet) tabs Allergy/AdvReac Type Severity Reaction Status Date / Time nut - unspecified Allergy Anaphylaxis Verified 05/04/24 02:53 fish derived (seafood - AdvReac Upset Verified 05/04/24 02:53 derived) Stomach Penicillins AdvReac Unknown Verified 05/04/24 02:53 shellfish derived (seafood AdvReac Upset Verified 05/04/24 02:53 - shellfish) Stomach Social History Smoking Status: Never smoker ROS ROS ED Constitutional Constitutional ED: Denies chills or fever(s) Eyes Eyes: Denies blurry vision or change in vision ENT ENT ED: Denies sore throat Cardiovascular Cardiovascular: Denies chest pain Respiratory/Chest Respiratory/Chest: Denies cough or dyspnea Gastrointestinal Gastrointestinal: Reports abdominal pain and nausea; Denies diarrhea or vomiting Genitourinary Genitourinary ED: Denies dysuria or hematuria Musculoskeletal Musculoskeletal: Denies back pain Integumentary Denies rash Neurologic Neurologic: Denies headache(s) Hematologic/Lymphatic Hematologic/Lymphatic: Denies easy bleeding or easy bruising EXAM Physical Exam Const Vital Signs: 05/04/24 02:53 05/04/24 05:21 Temperature 97.6 F L 98.0 F Temperature Source Oral Pulse Rate 76 74 Respiratory Rate 16 16 Blood Pressure 146/86 H 129/86 H Blood Pressure Mean 106 100 Pulse Ox 100 97 Oxygen Delivery Method Room Air Positive well nourished, well developed and obese General Appearance ED: well developed; Negative for pallor Nutritional Appearance: obese HEENT Reports moist mucous membranes HEENT Narrative: No tongue or lip swelling no oral lesions no airway edema or compromise No secondary findings in the posterior pharynx to suggest infection Eyes PERRL and EOMs intact bilaterally General Eye ED: Negative for scleral icterus Neck supple Neck Narrative: No nuchal rigidity or meningeal signs Resp normal respiratory effort and clear to auscultation bilaterally Cardio regular rate and regular rhythm Rate: other Other Details: Regular rate and rhythm without murmurs rubs or gallop Radial and carotid pulses are equal and symmetric GI non-distended and no masses GI Narrative: Abdomen is soft and nondistended with normal active bowel sounds. There is pain on palpation in the midepigastric and right upper quadrant region. Negative Sewell sign. No peritoneal signs or pulsatile mass Auscultation: normoactive bowel sounds Palpation: soft Back/Spine no CVA tenderness Extremity normal to inspection Neuro oriented x3, CN's II-XII intact bilaterally and no sensory deficits noted Sensorium / Orientation: alert Motor Exam: strength 5/5 throughout Psych mental status grossly normal Skin no rashes or lesions noted General Skin Exam: Negative for jaundice or pallor MDM MDM MDM Narrative Medical decision making narrative: Patient arrived to the ER with stable vitals. He reported being awoken from sleep with pain in the upper abdomen radiating to the right and left. History and exam is concerning for gastritis versus pancreatitis versus biliary colic versus acute cholecystitis. Secondary to this basic labs were ordered as well as a CT scan with IV contrast as I cannot perform an ultrasound at this time. The patient is afebrile and his white count is normal he does not have left shift and this goes against acute cholecystitis or infectious process. Patient is lipase is normal going against pancreatitis. Patient's liver enzymes are also normal. Of note his total bilirubin is slightly elevated but chart review reveals this is chronic in nature and is actually improved when compared to previous studies. CT scan question non-radiopaque gallstones but did not show any signs of biliary ductal dilation to suggest choledocholithiasis and there is no surrounding pericholecystic fluid to suggest acute cholecystitis. This correlates with the fact patient is afebrile without leukocytosis or left shift. After receiving IV hydration Dilaudid and Zofran patient had resolution of his pain and his abdomen remains soft and nonsurgical. Therefore based on the current nature of the patient's symptoms and his CT scan I do feel he most likely has gallstones leading to biliary colic. But as he does not have signs of acute infection or gallstone pancreatitis and his pain is resolved with treatment this can be worked up as an outpatient and he is otherwise safe for discharge History & Record Review Discussion w/independent historian: Patient and Significant other Lab Data Attestation: I reviewed the patient's lab results. Labs: Laboratory Results - last 24 hr 05/04/24 03:09 WBC 9.4 RBC 5.19 Hgb 15.7 Hct 43.5 MCV 83.8 MCH 30.3 MCHC 36.1 H RDW Std Deviation 35.1 RDW Coeff of Ilan 11.7 Plt Count 266 MPV 9.0 Immature Gran % (Auto) 0.700 Neut % (Auto) 44.4 L Lymph % (Auto) 42.9 H [place] % (Auto) 8.1 Eos % (Auto) 3.3 Baso % (Auto) 0.6 Absolute Neuts (auto) 4.2 Absolute Lymphs (auto) 4.04 Nucleated RBC % 0 Sodium 139 Potassium 3.5 Chloride 106 Carbon Dioxide 29.0 Anion Gap 4 L BUN 16 Creatinine 1.02 Estim Creat Clear Calc 117.25 Est GFR (MDRD) Af Amer 110 Est GFR (MDRD) Non-Af 91 BUN/Creatinine Ratio 15.7 Glucose 109 H Calcium 9.3 Total Bilirubin 1.30 H Direct Bilirubin 0.28 AST 23 ALT 45 Alkaline Phosphatase 47 Total Protein 7.6 Albumin 4.1 Globulin 3.5 Lipase 42 Radiography Diagnostic Testing: Clinical Impression(s) from Imaging Studies Abdomen/Pelvis CT 05/04/24 03:35 IMPRESSION: The gallbladder is mildly distended, with possible noncalcified stones in the lumen. Consider ultrasound for further evaluation. Electronically Signed: Adarsh Luis MD at 4:34 EST , Discharge Plan Triage Chief Complaint: Abd Pain ED Provider: Doug Ferrari Dx/Rx/DC Orders Clinical Impression: Biliary colic, Cholelithiasis Instructions: What Are Gallstones, ED Gallstones with Biliary Colic Prescriptions: New ondansetron 4 mg tablet,disintegrating 4 mg PO TID PRN (Reason: nausea and vomiting) Qty: 21 0RF oxycodone-acetaminophen [Percocet] 5-325 mg tablet 1 tab PO Q6H PRN (Reason: pain) 5 Days Qty: 20 0RF Other Ambulatory Orders: Gallbladder (Routine) Facility: [facility] - Location: [facility] Ordered By: Dr. Doug Ferrari Primary Care Provider: Vasquez Hernandes Referrals: Vasquez Hernandes MD [Primary Care Provider] - Joan Almazan MD [Med Staff - Active Staff] - Activity Restrictions/Additional Instructions: Your history and exam and CT scan indicate you have gallstones leading to a gallbladder spasm. Avoid greasy fatty foods to help prevent recurrence of your symptoms. Follow-up with general surgery to discuss need for potential gallbladder removal. If you develop a fever or your pain is not controlled with the provided medication please return to the ER for repeat evaluation Print Language: Amharic Disposition Disposition: Home, Self Care Discharge Date/Time: 05/04/24 05:22
[2024-05-04 05:21] VITALS: BP 129/86; PULSE 74; RESP 16; TEMP 36.7; O2SAT 97
== END 2024-05-04 05:22 | disposition home or self-care (01) ==
PROVIDERS: Emergency Provider Emergency Medicine; PCP Family Medicine; Visit Provider Emergency Medicine
DX: K80.70 Calculus of gallbladder and bile duct without cholecystitis without obstruction (principal)
CPT/HCPCS: 74177; 80048; 80076; 83690; 85025; 96361; 96374; 96375; 96376; 99282; Q9967; A4216; J2405

== ENCOUNTER → 2024-05-06 | Outpatient (CLI) | payer BC, SELFPAY ==
--- NOTE | 2024-05-06 08:24 | US_ITS ---
HISTORY: Cholelithiasis. TECHNIQUE: Denise scale and color doppler imaging was performed of the right upper quadrant. 118 images. COMPARISON: None. FINDINGS: LIVER: 15 cm in length. Increased echogenicity with sparing at the gallbladder fossa. No intrahepatic ductal dilatation. MAIN PORTAL VEIN: Patent with flow in the appropriate direction. COMMON BILE DUCT: 4 mm in diameter. GALLBLADDER: Multiple gallstones with an 8 mm gallstone in the gallbladder neck. 4 x 5 x 6 mm polyp also seen. 3 mm wall thickness. No pericholecystic fluid. Sonographic Sewell sign negative. PANCREAS: Not well visualized due to overlying bowel gas. RIGHT KIDNEY: 11.9 cm in length with a cortical thickness 1.5 cm. No hydronephrosis or gross renal mass demonstrated. US/Abdomen Limited IMPRESSION: Cholelithiasis with gallstones extending in the gallbladder neck. No gallbladder wall thickening. 6 mm gallbladder polyp. Hepatic steatosis. Electronically Signed: Kate Sandoval MD at 14:14 EST ,
== END | disposition home or self-care (01) ==
PROVIDERS: PCP Family Medicine; Referring Provider Emergency Medicine; Visit Provider Emergency Medicine
DX: K80.20 Calculus of gallbladder without cholecystitis without obstruction (principal)
CPT/HCPCS: 76705

== ENCOUNTER → 2024-10-13 | Outpatient (CLI) | payer BC, SELFPAY ==
[2024-10-13 10:07] LABS: Absolute Lymphocyte Count 2.39 X10^3/uL (0.83-4.51); Absolute Neutrophil Count 3.5 X10^3/uL (2.0-7.7); Basophil# 0.04 X10^3/uL; Basophil% 0.6 % (0-1); Eosinophil# 0.19 X10^3/uL; Eosinophils% 2.8 % (0-5); Hemoglobin 15.8 g/dL (13.0-16.5); Lymphocyte # 2.39 X10^3/ul (0.83-4.51); Lymphocyte % 35.8 % (19-41); Mean Corp Hgb Conc 35.1 g/dL (32-36); Mean Corpuscular Volume 85.6 fL (80-94); Mean Platelet Vol. 9.6 fl (6.2-12.0); Monocyte# 0.52 X10^3/uL; Monocyte% 7.8 % (0-10); NRBC Flagged by Analyzer 0 % (0-5); Neutrophil # 3.52 X10^3/uL (2.7-7.7); Neutrophil % 52.7 % (47-70); Platelet Count 226 K/mm3 (150-450); RBC Distribution Width CV 11.9 % (11.6-14.6); Red Blood Count 5.26 M/mm3 (4.6-6.2); White Blood Count 6.7 K/mm3 (4.4-11.0)
[2024-10-13 14:56] LABS: ALB/GLOB Ratio 1.6 RATIO (0.9-2.4); AST(SGOT) 23 U/L (<=37); Alanine Aminotransfer ALT/SGPT 38 U/L (<=46); Albumin, Serum 4.7 g/dL (3.5-5.0); Alkaline Phosphatase 46 U/L (40-129); Anion Gap 12 (5-15); BUN 18 mg/dL (4-19); BUN/Creat Ratio 19.1 RATIO (10-20); Calcium,Total 9.4 mg/dL (7.6-11.0); Carbon Dioxide 23.6 mmol/L (21.0-32.0); Chloride 103 mmol/L (98-108); Cholesterol 206 mg/dL (<=200); Creatinine, Serum 0.95 mg/dL (0.70-1.20); EST Glomerular Filtration Rate 110 (>60); Globulin 2.9 g/dL (2.2-4.2); Glucose 90 mg/dL (70-99); High Density Lipoprotein 33 mg/dL; Low Density Lipoprotein Calc. 120 mg/dL; Potassium 4.4 mmol/L (3.3-5.1); Protein, Total 7.6 g/dL (5.9-8.4); Sodium Level 138 mmol/L (133-145); Total Bilirubin 1.29 mg/dL (0.00-1.30); Triglycerides 267 mg/dL; Very Low Density Lipoprotein 53 mg/dL (5-40); Vitamin D,25 Hydroxy 21.2 ng/mL (30-100)
== END | disposition home or self-care (01) ==
LOC: MFPLAB 08:22
PROVIDERS: PCP Family Medicine; Referring Provider Family Medicine; Visit Provider Family Medicine
DX: E66.9 Obesity, unspecified (principal); E55.9 Vitamin D deficiency, unspecified
CPT/HCPCS: 36415; 80053; 80061; 82306; 85025

== ENCOUNTER → 2025-04-14 | Outpatient (CLI) | payer BC, SELFPAY ==
[2025-04-14 10:58] LABS: AST(SGOT) 24 U/L (<=37); Alanine Aminotransfer ALT/SGPT 42 U/L (<=46); Albumin, Serum 4.7 g/dL (3.5-5.0); Alkaline Phosphatase 42 U/L (40-129); Anion Gap 12 (5-15); BUN 14 mg/dL (4-19); BUN/Creat Ratio 13.9 RATIO (10-20); Bilirubin, Direct 0.47 mg/dL (0.00-0.30); Calcium,Total 9.6 mg/dL (7.6-11.0); Carbon Dioxide 23.8 mmol/L (21.0-32.0); Chloride 105 mmol/L (98-108); Globulin 2.7 g/dL (2.2-4.2); Glucose 99 mg/dL (70-99); Potassium 4.3 mmol/L (3.3-5.1); Vitamin D,25 Hydroxy 35.4 ng/mL (30-100)
== END | disposition home or self-care (01) ==
LOC: MFPLAB 08:12
PROVIDERS: PCP Family Medicine; Visit Provider Family Medicine
DX: E80.6 Other disorders of bilirubin metabolism (principal)
CPT/HCPCS: 36415; 80048; 80076; 82306